=== PATIENT | female | born 1985 | race African-American/Black ===

== ENCOUNTER 2020-06-05 14:06 | Emergency (ER) | payer MEDICAID ==
[~2020-06-05] VITALS: Ht 165.1 cm; Wt 63.0 kg
[2020-06-05] MEDS ORDERED: ASPIRIN 81MG TABLET PO ONE (14:45)
[2020-06-05 15:12] LABS: BASOPHILS % 0.2 % (0.0-2.0); EOSINOPHILS % 0.1 % (0.0-5.0); HEMATOCRIT. 33.4 % (36.0-48.0); HEMOGLOBIN. 10.9 g/dL (12.0-16.0); LYMPHOCYTES % 42.6 % (20.0-50.0); MEAN CORPUSCULAR HEMOGLOBIN 24.7 pg (28.0-32.0); MEAN CORPUSCULAR VOLUME 75.9 fL (81.0-99.0); MEAN PLATELET VOLUME 8.9 fl (7.4-10.4); MONOCYTES % 11.1 % (2.0-8.0); PLATELET 165 x1000/uL (130-400); RED CELL DISTRIBUTION WIDTH 14.3 % (11.6-14.6)
[2020-06-05 15:17] LABS: CHLORIDE 110 mEq/L (98-107)
[2020-06-05 15:21] LABS: ETHANOL BLOOD < 10 mg/dL
[2020-06-05 15:24] LABS: INR 1.1; PARTIAL THROMBOPLASTIN TIME 28.3 sec (23.4-31.0); PROTHROMBIN TIME 12.2 sec (9.6-11.0)
[2020-06-05 16:24] LABS: *COCAINE SCREEN URINE NEGATIVE (NEGATIVE); PHENCYCLIDINE URINE SCREEN NEGATIVE (NEGATIVE)
[2020-06-05 16:25] LABS: *AMPHETAMINES SCREEN URINE NEGATIVE (NEGATIVE); *BARBITURATES SCREEN URINE NEGATIVE (NEGATIVE); *BENZODIAZEPINES SCREEN URINE NEGATIVE (NEGATIVE); METHADONE URINE SCREEN NEGATIVE (NEGATIVE); OPIATES URINE SCREEN NEGATIVE (NEGATIVE)
[2020-06-05 16:31] LABS: CANNABINOID URINE SCREEN PRESUMTIVE POSITIVE (NEGATIVE)
[2020-06-05 17:18] VITALS: BP 146/69
[2020-06-05] MEDS ORDERED: PROP10TA10 MT (18:05)
[2020-06-05] MEDS ORDERED: PROP50TA3 MT (18:07)
== END 2020-06-05 18:30 | disposition home or self-care (01) ==
LOC: ER 14:06
DX: D64.9 Anemia, unspecified (principal); E05.90 Thyrotoxicosis, unspecified without thyrotoxic crisis or storm; F12.10 Cannabis abuse, uncomplicated; J45.909 Unspecified asthma, uncomplicated; Z91.19 Patient's noncompliance with other medical treatment and regimen
CPT/HCPCS: 36415; 71045; 80053; 80305; 80320; 81025; 83880; 84443; 84484; 85025; 85610; 85730; 93005; 99285; Z7610; G0480